=== PATIENT | female | born 1935 | race Caucasian/White ===

== ENCOUNTER 2021-12-15 10:57 | Inpatient (IN) ==
--- NOTE | 2021-12-13 10:11 | PAT Medication Instructions ---
Medication Instructions Date of Service December 13, 2021 Home Medications ibuprofen 200 mg tablet 200 mg PO Q8H PRN levothyroxine 25 mcg tablet 25 mcg PO QAM ASK your surgeon for instructions ibuprofen 200 mg tablet 200 mg PO Q8H PRN Take morning of surgery With a small sip of water, OTHERWISE NOTHING TO EAT OR DRINK AFTER MIDNIGHT: levothyroxine 25 mcg tablet 25 mcg PO QAM Other Notes If you have any questions please call us at [phone] or [phone] or [phone] or [phone]
--- NOTE | 2021-12-13 12:22 | Anesthesiology Consultation ---
Date of Service December 13, 2021 Assessment & Plan (1) Encounter for pre-operative examination: Chart Review Chart Review: Acceptable Risk for Surgery (pending preop Covid testing results ) and Patient seen in Pre Admission Testing No nasal intubation per patient Per [facility] appt on 12/13/21, patient denies any recent travel or large group activities. No known Covid positive exposures or Covid related symptoms. No known Covid infection in the past 90 days. Pt is vaccinated for Covid. Preop Covid testing done at [facility] appt 12/13/21 = results pending. Educated on importance of self quarantining, social distancing and wearing mask in public for the patient one week prior to surgery and after Covid testing done History Surgery Operation Date: 12/15/21 11:40 Proposed Procedures p Repair of Pseudoaneurysm of Right Groin - Maik Victoria MD Height/Weight Height: 5 ft 1 in Weight: 66.7 kg Allergies Allergy/AdvReac Type Severity Reaction Status Date / Time astemizole [From Hismanal] Allergy Mild bruises Verified 12/13/21 08:31 all over body Medications Home Medications Medication Instructions Recorded Confirmed Last Taken ibuprofen 200 mg tablet 200 mg PO Q8H PRN 12/10/21 12/13/21 12/10/21 00:00 levothyroxine 25 mcg tablet 25 mcg PO QAM 12/13/21 12/13/21 Unknown Past Medical History Medical History (Updated 12/13/21 @ 15:32 by Wendy Damian PA-C) Difficult intubation Per [facility] records: (2004)"Direct laryngoscopic-assisted nasotracheal intubation was attempted using MAC 3 & 4, Harkins 3 unsuccessfully; only epiglottis visualized. Intubating LMA used successfully with moderate difficulty." Hepatocellular carcinoma Diagnosed Oct 2021--TACE procedure (localized chemo) done at [facility] liver cancer [facility] @ [facility] on 11/29/21--follows locally with Dr. Vale History of anesthesia reaction States that her nasal structures are difficult for nasal trumpets, that previously they have tried to place them and have had severe difficulty with lots of bleeding History of blood transfusion ~1966- s/p surgery (partial thyroidectomy- secondary to goiter) Hypothyroidism Prediabetes Last A1c 5.7% 08/2021, no meds Pseudoaneurysm following procedure Per 12/10/21 u/s- Right groin pseudoaneurysm arising from the common femoral artery. Pseudoaneurysm measures 3.8 x 2.1 x 2.1 cm and contains thrombus. Patent portion of pseudoaneurysm measures approximately 1.3 cm. Neck of pseudoaneurysm measures 2 mm. 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 History of tooth extraction Past Anesthesia History No Hx of Anesthesia Complications (with exception to excessive bleeding with nasal intubations and hx of diffcult intubation ), Difficult Airway (per [facility] records ) and No Family Hx of Anesthesia Complications History of PONV No Hx of PONV and No Hx of Motion Sickness Social History Smoking Status: Never smoker Do You Dip or Chew Tobacco: No Hx Alcohol Use: No Hx Substance Use: No substance use type: does not use Review of Systems Hx of snoring- no hx of sleep study Patient denies chest pain, shortness of breath, dyspnea on exertion, reflux, cough, wheezing, palpitations. No hx of seizures, stroke, GA. No hx of blood clots. Physical Exam Vital Signs VITALS BP 146/79 P 78 TEMP 98.2 SP02 93% RESP 16 Constitutional no acute distress ENMT Mouth: + small oral opening; no TMJ clicking Thyromental Distance: < 3.5 Finger Breadths (3.0) Mallampati Class: III Permanent implants to side teeth and molars Neck + limited neck extension (significant ) Respiratory normal respiratory effort; no respiratory distress Auscultation: lungs clear to auscultation bilaterally; no wheezes Cardiovascular Rate/Rhythm: regular rate and regular rhythm Heart Sounds: no murmur Vessels: no carotid bruit Musculoskeletal Spine: no pain with cervical ROM Extremities: extremities normal to inspection Psychiatric Orientation: alert Lab Results Anesthesia Preop Results Results Anesthesia Widget: WBC 8.41 K/uL (4.8-10.8) 12/10/21 Hgb 16.2 g/dL (12.0-16.0) H 12/10/21 Hct 49.2 % (37-47) H 12/10/21 Plt 367 K/uL (130-400) 12/10/21 Na 135 mmol/L (136-145) L 12/13/21 K 4.6 mmol/L (3.5-5.1) 12/13/21 Cl 103 mmol/L (98-107) 12/13/21 CO2 24 mmol/L (21-32) 12/13/21 BUN 20 mg/dl (6-23) 12/13/21 Creat 0.50 mg/dl (0.6-1.2) L 12/13/21 Glucose Level 86 mg/dl (70-99(Fasting)) 12/13/21 PT 11.9 Seconds (9.0-12.0) 12/13/21 PTT 32.8 Seconds (21.0-31.0) H 12/13/21 INR 1.2 (0.9-1.1) H 12/13/21 Blood Type O Positive 12/13/21 Antibody Screen NEGATIVE 12/13/21 Testing Electrocardiogram Date: 12/13/21 NSR with sinus arrhythmia at 80bpm. Right superior axis deviation. EKG from December 10ACs are no longer present, questionable change in QRS axis per cardiology. Chest X-Ray Date: 12/13/21 FINDINGS: PA and lateral chest radiographs are obtained. No prior studies are available for comparison at the time of dictation. The heart is mildly enlarged noting atherosclerotic calcification of the thoracic aorta. There is elevation of the right hemidiaphragm. Diffuse interstitial thickening is observed. Foci of scarring/atelectasis are seen throughout both lungs. No airspace consolidation or large pleural effusion is identified There is no pneumothorax. The skeletal structures are osteopenic. The bony thorax appears intact. Arthritic change is seen in the shoulders. IMPRESSION: Chronic appearing parenchymal changes as above with no acute cardiopulmonary abnormality. Other Testing Chest CT 10/27/21= No evidence of metastatic disease in the chest. 2mm pulmonary nodule in the right upper lobe- nonspecific.
--- NOTE | 2021-12-14 15:30 | History & Physical Report ---
Date of Service December 14, 2021 History of Present Illness Primary Care Provider: Dee Lara DO Chief Complaint RM#[id number] was having TACE done for recent discovery of Liver Ca in September. Ecchymosis, swelling right lower extremity, pseudoaneurysm found on imaging. History of Present Illness I had the pleasure of seeing Jenni today for evaluation of her right groin. As you know she is an 86-year-old female who has a diagnosis of liver cancer. She underwent embolization of a liver mass with catheter directed chemotherapy in June of last year at [facility]. Recently she was seen in the emergency department at [facility] for swelling and ecchymosis of her right leg. She had a diagnosis of pseudoaneurysm right common femoral artery made at that time. This was the only intervention involving the right groin. She denies any nu mbness or pain in the lower leg. All her pain is located in the femoral region where the pulsatile masses. Review of Systems 10 systems were reviewed. Only positive findings are occasional cough occasional constipation and diarrhea. Of particular she has no heart or lung complaints. Rest of the positive findings are in the HPI. Physical Exam Vitals & Measurements HR: 85 (Monitored) BP: 142/62 SpO2: 96% WT: 65.6 kg Input and Output - Last 24 hours (Last 8 hours) No I/O Data Found: On exam the patient is awake alert and oriented x3. She is in no apparent distress. Her blood pressure is 142/62 on the left 134/68 on the right. Her neck has no carotid bruits. Her lungs are clear to auscultation. Heart had a regular rate and rhythm without murmurs or gallops or rubs. Abdominal exam is benign. There is no tenderness appreciated. Vascular exam distal radius carotid superficial temporal arteries +2 bilaterally. Femorals are +2 bilaterally. There is a 3 to 4 cm pulsatile mass in the right groin. There is ecchymosis present in the right groin extending down the leg to the ankle. The right leg is swollen when compared to the left. Neurologic exam is grossly intact to motor and sensory function. Assessment/Plan 1. Pseudoaneurysm of femoral artery At this point we recommended repair of the pseudoaneurysm. We talked about the risks options and benefits of repairing the pseudoaneurysm via surgical technique versus endovascular. She is not a good candidate for injection of the pseudoaneurysm due to the amount of time it has been there as well as the amount of discomfort she is having. They agreed to go ahead with a surgical repair. This will be done this Saturday. Thank you very much for letting us participate in the care of this patient. Sincerely, Dorita Victoria MD Problem List/Past Medical History Ongoing Pseudoaneurysm of femoral artery Historical No qualifying data Medications Inpatient No active inpatient medications Home levothyroxine 25 mcg (0.025 mg) oral tablet, 25 mcg= 1 tab, PO, Daily ZyrTEC 10 mg oral tablet, 10 mg= 1 tab, PO, Daily, PRN Allergies Hismanal (unk) Social History Smoking Status Never smoked cigarettes Signature Line Electronic Signature on File Maik Victoria MD Author Signature Dt/Tm: 12/12/2021 04:15 PM Wash Helper Jayson S. [facility] [place], [address] [place], [place] [address] Result Type: .Outpt Ltr Date of Service: December 12, 2021 16:15 EST Authorization Status: Final Subject: Consult Note Author or Import Date: MD Victoria Eugene J on December 12, 2021 16:15 EST Verified By: MD Victoria Eugene J on December 12, 2021 16:15 EST Encounter info: [id number], [facility] [facility], Clinic, 12/12/2021 - 12/12/2021 Allergies Allergy/AdvReac Type Severity Reaction Status Date / Time astemizole [From Hismanal] Allergy Mild bruises Verified 12/13/21 08:31 all over body Home Medications Medication Instructions Recorded Confirmed Type ibuprofen 200 mg tablet 200 mg PO Q8H PRN 12/10/21 12/13/21 History levothyroxine 25 mcg tablet 25 mcg PO QAM 12/13/21 12/13/21 History Past Med/Surg History Medical History (Updated 12/13/21 @ 15:32 by Wendy Damian PA-C) Difficult intubation Per [facility] records: (2004)"Direct laryngoscopic-assisted nasotracheal intubation was attempted using MAC 3 & 4, Harkins 3 unsuccessfully; only epiglottis visualized. Intubating LMA used successfully with moderate difficulty." Hepatocellular carcinoma Diagnosed Oct 2021--TACE procedure (localized chemo) done at [facility] liver cancer center @ [place] on 11/29/21--follows locally with Dr. Vale History of anesthesia reaction States that her nasal structures are difficult for nasal trumpets, that previously they have tried to place them and have had severe difficulty with lots of bleeding History of blood transfusion ~1966- s/p surgery (partial thyroidectomy- secondary to goiter) Hypothyroidism Prediabetes Last A1c 5.7% 08/2021, no meds Pseudoaneurysm following procedure Per 12/10/21 u/s- Right groin pseudoaneurysm arising from the common femoral artery. Pseudoaneurysm measures 3.8 x 2.1 x 2.1 cm and contains thrombus. Patent portion of pseudoaneurysm measures approximately 1.3 cm. Neck of pseudoaneurysm measures 2 mm. 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
[~2021-12-15 10:57] MED LIST: LR 15ML/HR IV SCH; ceFAZolin 1000MG 1,000 MG/7.5 ML SYR IV SCH
[2021-12-15] MEDS ORDERED: ONDANSETRON INJ 2 MG/ML 2 ML VIAL IV PRN (12:01)
[2021-12-15] MEDS ORDERED: ATROPINE SULFATE 0.1 MG/ML 10ML SYR IV PRN (12:01)
--- NOTE | 2021-12-15 12:15 | History & Physical Bridge Note ---
Date of Service December 15, 2021 History & Physical Bridge Note I have examined the patient, reviewed the History & Physical and in the interval since the performance of the History & Physical I have noted the following changes of clinical significance: no changes noted
[2021-12-15] MEDS ORDERED: PAPAVERINE HCL INJ 30 MG/ML 2 ML VIAL ONE (12:42)
[2021-12-15] MEDS ORDERED: THROMBIN FOR SOLN 20000 UNIT KIT ONE (12:42)
[2021-12-15] MEDS ORDERED: ceFAZolin 330 MG/ML 1 GM VIAL ONE (12:42)
[2021-12-15] MEDS ORDERED: GELATIN SPONGE SZ 100 ONE (12:42)
[2021-12-15] MEDS ORDERED: HEPARIN (PORCINE) 1000 UNIT/ML 10 ML (CATH LAB USE ONLY) ONE (12:42)
[2021-12-15] MEDS ORDERED: LIDOCAINE 2% 2 ML VIAL/AMP(20MG/ML) INFIL ONE (13:17)
[2021-12-15] MEDS ORDERED: fentaNYL citrate 100 MCG/2 ML VIAL ONE ×2 (13:17→14:03)
[2021-12-15] MEDS ORDERED: ONDANSETRON INJ 2 MG/ML 2 ML VIAL ONE (13:17)
[2021-12-15] MEDS ORDERED: PROPOFOL IV EMULSION 10 MG/ML 20 ML VIAL IV ONE ×2 (13:17→13:46)
[2021-12-15] MEDS ORDERED: BACITRACIN OINT 15 GM TUBE ONE (13:49)
[2021-12-15] MEDS ORDERED: ALBUMIN HUMAN 5% 12.5 GM/250 ML VIAL IV ONE (14:03)
[2021-12-15] MEDS ORDERED: oxyCODONE/ACETAMINOPHEN 5mg/325mg TAB PO PRN (14:14)
--- NOTE | 2021-12-15 14:27 | Operative Report ---
Post Operative Report Pre & Post Diagnosis Operation Date: 12/15/21 12:50 Pre-Op Diagnosis: Pseudoaneurysm Right Femoral Artery Post-Op Diagnosis: Pseudoaneurysm Right Common Femoral Procedure Repair of Psuedoaneurysm Artery I identified the patient and participated in the time-out.: Yes Procedure Operation Date: 12/15/21 12:50 Actual Procedures p Right Common Femoral Artery Repair of Pseudoaneurysm(Right) - Maik Victoria MD Surgeon Maik Victoria MD Shift Commander Reynaldo,PAC Estimated Blood Loss 20 Findings Consistent with Post-Op Diagnosis Specimens none Anesthesia Type General Complications none Disposition Accompanied Patient To Recovery: No Disposition: Recovery Room Indications This is an 86-year-old female who last fall had a embolization of a liver tumor and catheter directed chemotherapy via a right groin approach. She presented now with swelling in her right leg and ecchymosis. Ultrasound showed a pseudoaneurysm of the right common femoral artery which most likely a ruptured and bled into her thigh. Repair was recommended. I have discussed the risks options and benefits of the procedure with the patient. The patient understands the risks options and benefits and agrees to the procedure. Description of Procedure The patient was taken to the operative room and placed in the supine position. The right groin was prepped and draped in a sterile manner. The patient was identified and a timeout was performed. Incision was made over the pseudoaneurysm in the right groin. This is carried down through the subcuta neous tissue through the femoral sheath. Dissection was carried out above the pseudoaneurysm where the common femoral arteries identified at the inguinal ligament. At that level it was slung with a red rubber vessel loop. Dissection was then carried on inferiorly. Superficial femoral arteries identified. A large golf ball sized pseudoaneurysm was noted filled with clot. There was also clot extending into the medial thigh for a short distance of approximately 5 cm. This clot was removed. Dissection was carried upward to where a bleeding was noted coming from a puncture site on the common femoral artery. Clamp was then placed on the common femoral artery proximally and in the common femoral artery distally just before the bifurcation. Dissection was further done that exposes the area of puncture. There is also of the bleeding vein noted in that area. The vein was ligated to control the bleeding. The puncture site was then excised cleaned off of the surrounding fibrin tissue and repaired with a 5-0 Prolene suture. Clamps and removed. Good flow was seen through the common femoral artery. Adequate hemostasis was then obtained. Once this was noted the wound was irrigated and closed in usual fashion using running 2-0 Vicryl suture for the femoral sheath and a running 3-0 Vicryl suture subcutaneous layer and mandie for the skin. Sterile dressings were applied to the wound.The patient left the operation room in satisfactory condition and tolerated the procedure well. All needle and sponge counts were correct at the end of the procedure. Camelia Jaeger Pac assisted due to lack of resident availability and was necessary for positioning, draping, retraction, wound closure deep layers, subcutaneous tissue, and skin closure and was necessary for assisting with the case. I attest to the content of the Intraoperative Record and any orders documented therein. Any exceptions are noted below.
[2021-12-15] MEDS ORDERED: DEXAMETHASONE SOD INJ 4 MG/ML VIAL ONE (14:30)
[2021-12-15] MEDS: fentaNYL citrate 100 MCG/2 ML VIAL IV PRN ×6 (14:40→15:05)
[2021-12-15] MEDS ORDERED: HYDROmorphone INJ 1 MG/ML SYRINGE IV PRN (15:00)
--- NOTE | 2021-12-15 15:22 | Anesthesiology Progress Note ---
Date of Service December 15, 2021 Anesthesia Post Procedure Vital Signs Vital Signs: Temp Pulse Resp BP BP Pulse Ox 12/15/21 15:15 36.4 C L 88 16 153/59 H 95 12/15/21 15:05 86 16 149/59 H 95 12/15/21 14:55 86 16 154/57 H 98 12/15/21 14:45 85 16 136/55 L 98 12/15/21 14:36 36.7 C 87 18 143/72 H 97 12/15/21 11:33 37.1 C 87 18 138/77 135/74 94 Transfer of Care Handoff Completed per policy Notes Mental Status: alert / awake / arousable Patient Amnestic to Procedure: Yes Nausea / Vomiting: adequately controlled Pain: adequately controlled Airway Patency, RR, SpO2: stable & adequate BP & HR: stable & adequate Hydration State: stable & adequate Anesthetic Complications: no major complications apparent
== END 2021-12-15 17:03 | disposition home or self-care (01) | DRG 254 ==
LOC: ASU 10:57 → PACUINP 14:15 → ASU 17:03